=== PATIENT | male | born 1975 | race Hispanic/Latino ===

== ENCOUNTER 2020-08-04 12:23 | Emergency (ER) | payer OTHER ==
[2020-08-04 18:20] LABS: SARS-CoV-2 PCR by NAA DETECTED (NotDetected)
== END 2020-08-04 13:10 | disposition home or self-care (01) ==
LOC: ERS 12:23
DX: U07.1 COVID-19 (principal)
CPT/HCPCS: 87635; 99283; U0003; U0005